=== PATIENT | male | born 1990 | race African-American/Black ===

== ENCOUNTER 2023-07-13 23:12 | Emergency (ER) | payer BC ==
[~2023-07-13] VITALS: Ht 190.5 cm; Wt 132.0 kg
[2023-07-13 23:33] VITALS: O2SAT 98
[2023-07-14 02:40] VITALS: BP 134/87; PULSE 66; RESP 18; TEMP 97.9
== END 2023-07-14 02:40 | disposition home or self-care (01) ==
LOC: ER 23:12
DX: B34.9 Viral infection, unspecified (principal); Z88.2 Allergy status to sulfonamides; Z20.822 Contact with and (suspected) exposure to COVID-19
CPT/HCPCS: 71045; 87426; 87804; 99284